=== PATIENT | male | born 1960 ===

== ENCOUNTER 2019-12-19 07:23 | Emergency (ER) | payer OTHER ==
[~2019-12-19] VITALS: Ht 180.3 cm; Wt 97.1 kg
[2019-12-19] MEDS ORDERED: BRILINTA90 MG (07:28)
[2019-12-19] MEDS ORDERED: ASPIR 8181 MG (07:28)
[2019-12-19] MEDS ORDERED: LIPITOR80 MG (07:28)
[2019-12-19] MEDS ORDERED: EC-NAPROSYN500 MG (07:29)
[2019-12-19] MEDS ORDERED: CARVEDILOL ER40 MG (07:29)
[2019-12-19] MEDS ORDERED: PERCOCET 5-3251 EACH PO (14:23)
[2019-12-19] MEDS ORDERED: CIPRO500 MG PO (14:24)
== END 2019-12-19 15:21 | disposition home or self-care (01) ==
LOC: ER 07:23
DX: R10.32 Left lower quadrant pain (principal)